=== PATIENT | female | born 1985 | race Caucasian/White ===

== ENCOUNTER 2016-09-21 01:00 | Emergency (ER) | payer BC ==
[2016-09-21 03:06] LABS: HEMOGLOBIN 13.3 gm/dl (12.3-15.3); RED BLOOD COUNT 4.47 M/UL (4.00-5.10); WHITE BLOOD COUNT 5.9 K/UL (4.5-11.0)
[2016-09-21 03:22] LABS: BUN/CREATININE RATIO 19 (0-10)
== END 2016-09-21 04:30 | disposition home or self-care (01) ==
LOC: ER1 01:00
PROVIDERS: Physician Assistant
DX: R10.811 Right upper quadrant abdominal tenderness (principal); Z98.51 Tubal ligation status
CPT/HCPCS: 36415; 80053; 81001; 82150; 83690; 84703; 85025; 87086; 99284

== ENCOUNTER → 2016-09-22 | Outpatient (CLI) | payer BC | LOC: KOH-I 13:25 | DX: R10.11 Right upper quadrant pain (principal) | CPT/HCPCS: 76705 ==

== ENCOUNTER → 2016-10-01 | Outpatient (CLI) | payer BC | LOC: NM 07:20 | DX: R10.11 Right upper quadrant pain (principal) | CPT/HCPCS: 78227; A9537; J2805 ==